=== PATIENT | male | born 1980 | race Caucasian/White ===

== ENCOUNTER 2019-10-31 15:49 | Outpatient (CLI) | payer BC ==
--- NOTE | 2019-10-31 16:49 | CT ---
CT Upper Ext Rt WO Con History: Fall. Fracture. Comparison: None. Findings: There is a comminuted impacted radial head fracture. The radial head is severely fragmented with the fracture involving greater than 80% of the articular surface. Some of the fragments are depressed 3 mm. The fracture extends distal to the radiocapitellar joint approximately 13 mm. The ulnar trochlear joint is intact with small simple tubercle osteophyte. The olecranon is intact. L arge joint effusion. Small avulsion off the posterior margin of the radial notch of the ulna at the expected location of the annular ligament insertion. Impression: 1. Highly comminuted impacted radial head and neck fracture described. 2. Small osseous avulsion of the lateral margin posterior radial notch of the ulna at the expected lo cation of the annular ligament insertion.
== END 2019-10-31 15:50 | disposition home or self-care (01) ==
LOC: SCSCT 15:49
PROVIDERS: ATTEND Orthopaedic Surgery
DX: S52.121A Displaced fracture of head of right radius, initial encounter for closed fracture (principal)

== ENCOUNTER 2019-11-02 07:46 | Day surgery (SDC) | payer BC ==
[2019-11-01 12:55] VITALS: BMI 29.6
[2019-11-02] MEDS ORDERED: Fentanyl 100 MCG/2 ML VIAL ONE ×2 (10:16→11:12)
[2019-11-02] MEDS ORDERED: Midazolam HCl 2 mg/2 ml Vial ONE (10:16)
[2019-11-02 10:26] LABS: #Basophils 0.1 thou/uL (0.0-0.2); #Eosinphils 0.2 thou/uL (0.0-0.7); #Lymphocytes 1.8 thou/uL (1.20-3.40); #Monocytes 0.7 thou/uL (0.11-0.59); %Basophils 0.7 % (0.0-1.0); %Eosinophils 2.5 % (0.0-10.0); %Lymphocytes 23.3 % (21.0-51.0); %Monocytes 8.6 % (0.0-10.0); %Neutrophils 64.9 % (42.0-75.0); Hemoglobin 15.6 g/dL (14.0-18.0); Mean Corpuscular HGB CONC 33.9 g/dL (32.0-36.0); Mean Corpuscular Hemoglobin 30.3 pg (27.0-31.0); Mean Corpuscular Volume 89.2 fL (78.0-98.0); Mean Platelet Volume 8.6 fL (7.4-10.4); Platelet Count 203 thou/uL (130-400); RBC Distribution Width 11.9 % (11.5-14.5); Red Blood Cell (RBC) Count 5.17 mill/uL (4.70-6.10); White Blood Cell (WBC) Count 7.8 thou/uL (4.8-10.8)
[2019-11-02] MEDS ORDERED: ePHEDrine/0.9% NaCl/PF SYRINGE 50 mg/10 ml ONE (13:52)
[2019-11-02] MEDS ORDERED: PROPOFOL 200 MG/20 ML VIAL ONE (13:52)
[2019-11-02] MEDS ORDERED: Lidocaine 1% PF 5 ML VIAL ONE (13:52)
[2019-11-02] MEDS ORDERED: Dexamethasone 20 MG/5 ML VIAL ONE (13:52)
[2019-11-02] MEDS ORDERED: Ondansetron PF 4 MG/2 ML Vial ONE (13:52)
[2019-11-02] MEDS ORDERED: Bupivacaine HCl 0.5%/Epinephrine 1:200,000/PF 30 ml Vial ONE (13:55)
--- NOTE | 2019-11-02 17:12 | RAD ---
EXAM: XR Elbow Rt 2 View PROVIDED CLINICAL HISTORY: Postop COMPARISON: None FINDINGS: Postoperative changes of right radial head arthroplasty noted. No evidence for an acute osseous abnor mality. IMPRESSION: As above.
--- NOTE | 2019-11-02 20:24 | OP ---
DATE OF PROCEDURE: 11/02/2019 PREOPERATIVE DIAGNOSIS: Right comminuted radial head fracture, Samm 3. POSTOPERATIVE DIAGNOSIS: Right comminuted radial head fracture, Samm 3. PROCEDURE PERFORMED: Right radial head replacement. MARKETING DATABASE ANALYST: Gregorio Fam PA-C. ANESTHESIOLOGIST: Tavares Kolb MD ANESTHESIA: Patient received LMA with interscalene. ESTIMATED BLOOD LOSS: 30 mL. TOURNIQUET TIME: 58 minutes at 350 mmHg. ANTIBIOTICS: Ancef 2 g. IMPLANTS: [employer] Evolve 5.5 mm OD stem and an OD 22 mm head. COMPLICATIONS: None. HISTORY: Mr. Michael is a 39-year-old male, who fall out of his attic, sustained a comminuted fracture of the radial head. CT scan showing greater 3 to 4 fragments. I did not feel this would be an easily reconstructed given the flipped up piece, we constructed with screws given the severe comminution of the radial head. Given this, I discussed the radial head replacement. I discussed with the patient risks and benefits of surgery to include pain, scar, bleeding, infection, damage to vital structures, decreased range of motion and strength, need for further surgeries, failure of procedure, continued pain despite surgical intervention, damage to vital structures, loss of life or limb. 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 There was small risk of arthritis. He understood these risks, benefits and elected to proceed. DESCRIPTION OF PROCEDURE: Time-out was performed designating the patient's right upper extremity as the operative site based on site, consents, and marking. After time-out, patient upper extremity was prepped and draped in a sterile fashion. An incision was made down on the Benton interval down through skin, found anconeus which I split, just appeared anconeus coming down taking some of the common extensors off but leaving the collateral and making just a peel to expose the head. I placed retractors around, removed the fragment there, cut, started broaching, broached up to a 6.5 and placed a 5.5 mm stem. I planted an implanted first started with a 24 which was too large. I went ahead with 22, which had better sizing. Patient had overall good alignment. We took final implants. Took down about 1 mm or 2 mm of the implant to get better spacing, but I was still on the lateral too long and was overlying the patient's greater sigmoid notch and the lesser sigmoid for the radial head. Given this, I removed a little bit more bone. I felt like it trialed well, did not one but two more millimeters. I think I would be back in same situation. Therefore, I placed a 5.5 x 22 mm. I looked under AP and lateral radiographs, I liked it, I liked the alignment and stability, had a little bit of play and was overall good position for the spacer. Therefore, I washed all the bone, put my final implant. I closed my Benton interval with 0 Vicryl running and some figure of four sutures. I then cut those. I then removed, washed, closed subcu with 2-0 Vicryl, 3-0 nylon, let the tourniquet down, and the patient had a block. Therefore, no injection was made. The patient was placed a soft tissue dressing and sling and will be allowed to do passive range of motion given no collateral ligament rupture or injury. The patient will have some passive range of motion. Follow up me in 10 to 14 days. Job ID: [id number]
== END 2019-11-02 14:50 | disposition home or self-care (01) ==
LOC: SDC 07:46
PROVIDERS: ATTEND Orthopaedic Surgery
PROC: 0PRH0JZ Replacement of Right Radius with Synthetic Substitute, Open Approach (ICD-10-PCS; principal; 2019-11-02)
DX: S52.121A Displaced fracture of head of right radius, initial encounter for closed fracture (principal); W10.9XXA Fall (on) (from) unspecified stairs and steps, initial encounter
CPT/HCPCS: 76000; 85025; C1776; J0670; J0690; J1100; J2001; J2250; J2405; J2704; J3010